=== PATIENT | female | born 1980 | race Caucasian/White ===

== ENCOUNTER 2023-10-31 08:28 | Emergency (ER) | payer OTHER ==
[~2023-10-31] VITALS: Ht 165.1 cm; Wt 66.0 kg
[2023-10-31 08:44] VITALS: BP 144/89; TEMP 98.3; O2SAT 97
[2023-10-31 08:49] VITALS: PULSE 87; RESP 16
[2023-10-31] MEDS ORDERED: MECLIZINE 25MG TABLET PO ONE (10:00)
[2023-10-31] MEDS: MECLIZINE 12.5MG TABLET PO NR (10:19)
[2023-10-31] MEDS ORDERED: MECL-299 MT (11:26)
[2023-10-31] MEDS ORDERED: P50 MT (11:26)
== END 2023-10-31 12:42 | disposition home or self-care (01) ==
LOC: ER 08:28
DX: R42 Dizziness and giddiness (principal); I10 Essential (primary) hypertension
CPT/HCPCS: 93005; 99283; J8597; Z7610 ×5